=== PATIENT | male | born 1970 | race Caucasian/White ===

== ENCOUNTER 2023-01-23 08:03 | Day surgery (SDC) | payer OTHER ==
[2023-01-21 09:42] VITALS: BMI 33.5
[2023-01-23 10:21] VITALS: RESP 20; TEMP 97.1
[2023-01-23 10:35] VITALS: BP 100/62; PULSE 65
== END 2023-01-23 10:15 | disposition home or self-care (01) ==
LOC: FASU-ENDO 08:03
PROVIDERS: ATTEND Internal Medicine Gastroenterology
PROC: 0DBN8ZX Excision of Sigmoid Colon, Via Natural or Artificial Opening Endoscopic, Diagnostic (ICD-10-PCS; 2023-01-23)
PROC: 0DBP8ZX Excision of Rectum, Via Natural or Artificial Opening Endoscopic, Diagnostic (ICD-10-PCS; principal; 2023-01-23 08:59)
DX: Z12.11 Encounter for screening for malignant neoplasm of colon (principal); K63.5 Polyp of colon
CPT/HCPCS: 88305-TC